=== PATIENT | male | born 1970 | race Caucasian/White ===

== ENCOUNTER → 2019-02-24 15:18 | Outpatient (CLI) | payer OTHER, SELFPAY ==
--- NOTE | 2019-02-24 | DI.MRI.S_ITS ---
PROCEDURE: MR SHOULDER RT WO CON INDICATIONS: Unspecified sprain of right shoulder joint TECHNIQUE: Noncontrast oblique coronal T2 fast spin echo with fat saturation, oblique sagittal T1 spin echo and T2 fast spin echo with fat saturation, axial T1 spin echo and T2 fast spin echo with fat saturation through the shoulder. COMPARISON: [facility], MR, SHOULDER RT W/O CONTRAST, 04/20/2013, 14:21. FINDINGS: Image quality: Diagnostic. Rotator cuff: There is moderate thickening and increased signal identified involving the supraspinatus tendon with areas of intrasubstance low-grade partial-thickness tearing. There is also increased signal and thickening of the infraspinatus tendon. There is low-grade partial-thickness tearing at the insertion of the distal subscapularis tendon with corresponding mild tendinopathy. The teres minor tendon is intact. There is no significant atrophy of the rotator cuff muscles. Bones and bursae: No acute fracture, dislocation, or suspicious osseous lesion is evident involving the osseous structures of the right shoulder. There mild degenerative changes of the glenohumeral joint. No significant glenohumeral joint effusion is evident. There are moderate degenerative changes of the acromio clavicular joint with undersurface osteophytes and degenerative/reactive marrow changes. Small amount of fluid is contained within the subacromial subdeltoid bursa. Capsule and soft tissues: Evaluation of the labrum and glenohumeral ligaments is difficult without intra-articular contrast. However, there is a moderate to large superior and posterior labral tear that extends from approximately the 9 o'clock position (anterior) through the 12 o'clock position (superior) and the lung the posterior labrum to at least the 5 o'clock position (posteroinferior). No detached labral fragment or large paralabral cysts are evident. There may be scattered small para labral cysts. No cysts are seen extending into the spinoglenoid notch. The long head of the biceps tendon is normally positioned within the bicipital groove and is otherwise intact and unremarkable. No acute injuries are suspected involving the glenohumeral ligaments. IMPRESSION: 1. Low-grade intrasubstance partial thickness tearing and moderate tendinopathy of the supraspinatus tendon. There is also low-grade partial-thickness tearing and tendinopathy of the subscapularis tendon to a lesser degree. There is moderate infraspinatus tendinopathy, as well. 2. Large labral tear. 3. Moderate degenerative changes of the acromioclavicular joint with fluid located within the underlying bursa. Please correlate clinically for possible bursitis and or subacromial impingement. Dictated by: Pedro Pereyra M.D. on 02/24/2019 at 15:38 Approved by: Pedro Pereyra M.D. on 02/24/2019 at 15:42
== END ==
PROVIDERS: Visit Provider Family Medicine
DX: M75.111 Incomplete rotator cuff tear or rupture of right shoulder, not specified as traumatic (principal); S43.491A Other sprain of right shoulder joint, initial encounter; M19.011 Primary osteoarthritis, right shoulder
CPT/HCPCS: 73221

== ENCOUNTER → 2020-06-27 10:05 | Outpatient (CLI) | payer OTHER, MEDICAID, SELFPAY ==
--- NOTE | 2020-06-27 | DI.RAD.S_ITS ---
PROCEDURE: XR HIP W PEL IF DONE LT 2V INDICATIONS: LEFT HIP PAIN. TECHNIQUE: AP pelvis with lateral view(s) of the left hip(s). COMPARISON: None. FINDINGS: Bones: No fractures or dislocations. Pelvic ring appears intact. No suspicious bony lesions. Soft tissues: The visualized bowel gas pattern is normal. No suspicious soft tissue calcifications. IMPRESSION: No trauma found. Source of pain is not seen. Dictated by: Vel Alvarado M.D. on 06/27/2020 at 10:58 Approved by: Vel Alvarado M.D. on 06/27/2020 at 10:59
== END ==
PROVIDERS: PCP Family Medicine; Referring Provider Family Medicine; Visit Provider Family Medicine
DX: M25.552 Pain in left hip (principal)
CPT/HCPCS: 73502